=== PATIENT | male | born 1975 | race Caucasian/White ===

== ENCOUNTER 2021-02-22 06:32 | Emergency (ER) | payer BC ==
[~2021-02-22] VITALS: Ht 167.6 cm; Wt 72.7 kg
[~2021-02-22 06:32] MED LIST: BACTRIM DS 8001 TAB PO; CEPHALEXIN500 M1 PO; NORCO 325 MG-51 TAB PO
[2021-02-22 06:39] VITALS: TEMP 97.9
[2021-02-22 07:29] LABS: COLLECTION METHOD CLEAN CATCH
[2021-02-22 07:31] LABS: HEMATOCRIT 43.2 % (42.0-52.0); HEMOGLOBIN 15.1 g/dl (13.5-18.0); MEAN CELL VOLUME 85 fl (80.0-100.0); MEAN CORPUSCULAR HEMOGLOBIN 30 pg (27.0-31.0); MEAN CORPUSCULAR HGB CONC 35 g/dl (33.0-37.0); MEAN PLATELET VOLUME 10.4 fl (7.4-10.4); PLATELET COUNT 193 K/mm3 (130-400); RED BLOOD COUNT 5.06 M/mm3 (4.20-5.60); REDCELL DISTRIBUTION WIDTH-CV 12.7 % (11.5-14.5)
[2021-02-22 07:35] LABS: MUCOUS Present /lpf; PH 5 (5-8); SQUAMOUS EPITHELIAL 0-2 /hpf; URINE APPEARANCE Clear; URINE BACTERIA None Seen /hpf; URINE BILIRUBIN Negative (NEGATIVE); URINE BLOOD 3+ (NEGATIVE); URINE COLOR Yellow; URINE GLUCOSE Negative (NEGATIVE); URINE KETONE Trace (NEGATIVE); URINE LEUKOCYTE ESTERASE Negative (NEGATIVE); URINE NITRATE Negative (NEGATIVE); URINE PROTEIN(semi-quant) Negative (NEGATIVE); URINE RBC >50 /hpf; URINE UROBILINOGEN Negative (NEGATIVE)
[2021-02-22 07:41] LABS: ALBUMIN 4.3 gm/dL (3.5-5.0); BILIRUBIN,TOTAL 0.8 mg/dL (0.0-1.0); CALCIUM 9.3 mg/dL (8.4-10.2); CREATININE, serum 0.8 (0.66-1.25); POTASSIUM 4.3 mmol/L (3.4-5.0); TOTAL PROTEIN 7.3 gm/dL (6.4-8.2)
[2021-02-22 08:22] LABS: BAND 3 % (0-10); BASOPHIL 1 % (0-2); EOSINOPHIL 2 % (0-4); LYMPHOCYTE 32 % (20.0-51.0); NEUTROPHILS 57 % (42.0-75.2)
[2021-02-22 08:23] LABS: ANISOCYTOSIS 1+
[2021-02-22] MEDS ORDERED: ZOFRAN ODT4 MG PO (09:27)
[2021-02-22] MEDS ORDERED: PERCOCET 325 MG1 TA2 PO (09:27)
[2021-02-22] MEDS ORDERED: FLOMAX 0.40.4 MG/CAP PO (09:27)
[2021-02-22 09:45] VITALS: BP 155/105; PULSE 62
== END 2021-02-22 09:47 | disposition home or self-care (01) ==
LOC: COL.ER 06:32
PROVIDERS: Personal Emergency Response Attendant
DX: N20.0 Calculus of kidney (principal)
CPT/HCPCS: J1885; J2270; J2405; J7030; Q9967